=== PATIENT | male | born 1955 | race Caucasian/White ===

== ENCOUNTER 2016-11-18 17:43 | Observation (INO) | payer BC ==
--- NOTE | 2016-11-18 17:56 | CPEKG ---
Heart Rate: 69 RR Interval: 870 P-R Interval: 200 QRSD Interval: 94 QT Interval: 416 QTC Interval: 446 P Perry: 11 QRS Perry: 22 T Wave Perry: 38 EKG Severity - OTHERWISE NORMAL ECG - EKG Impression: SINUS RHYTHM EKG Impression: LOW VOLTAGE IN FRONTAL LEADS Electronically Signed By: Sachin Thacker 18-Nov-2016 21:18:04
[2016-11-18] MEDS ORDERED: ONDANSETRON 4 MG/2 ML VIAL IVP ONE ×2 (17:58→19:17)
[2016-11-18] MEDS ORDERED: NS 1,000 ML IV ONE ×2 (17:58)
[2016-11-18] MEDS ORDERED: HYDROmorphONE/DILAUDID 1 MG/ML SYR IVP ONE ×2 (17:58→20:12)
--- NOTE | 2016-11-18 18:01 | EDPHY ---
H & P Time Seen by Provider: 11/18/16 17:45 Constitutional: Initial Vital Signs Temperature (C) 36.9 C 11/18/16 17:56 Heart Rate 88 11/18/16 17:56 Respiratory Rate 14 11/18/16 17:56 Blood Pressure 140/92 H 11/18/16 17:56 O2 Sat (%) 98 11/18/16 17:56 O2 Delivery Mode Room Air O2 (L/minute) 2 Allergies/Adverse Reactions: ciprofloxacin [From Cipro] Allergy (Severe, Verified 11/18/16 17:55) Other-Enter Comments ciprofloxacin HCl [From Cipro] Allergy (Severe, Verified 11/18/16 17:55) Other-Enter Comments moxifloxacin HCl [From Avelox] Allergy (Severe, Verified 11/18/16 17:55) Hypotension erythromycin base [Erythromycin Base] Allergy (Intermediate, Verified 11/18/16 17:55) Other-Enter Comments Sulfa (Sulfonamide Antibiotics) Allergy (Mild, Verified 11/18/16 17:55) Other-Enter Comments Home Medications: Medication Instructions Recorded Aspirin [Aspirin 81mg] 81 mg PO DAILY 11/09/10 Medical Decision Making ED Course/Re-evaluation: CHIEF COMPLAINT: Abdominal pain, left lower back pain, nausea. HISTORY OF PRESENT ILLNESS: The patient is a 61-year-old male who presents with nausea, sharp abdominal pain, and left lower back pain. The back pain onset suddenly at 0300 this morning which was followed at 0500 by the abdominal pain and nausea. He believes the nausea may be from the intensity of the pain. He denies vomiting or other complaints. REVIEW OF SYSTEMS: A 10 point review of systems was performed and is negative with the exception of the elements mentioned in the history of present illness. PHYSICAL EXAM: HR, BP, O2 Sat, RR. Temp noted General Appearance: Alert, well hydrated, appropriate, and non-toxic appearing. Head: Atraumatic without scalp tenderness or obvious injury Eyes: Pupils equal, round, reactive to light and accommodation, EOMI, no trauma , no injection. Ears: Clear bilaterally, no perforation, normal landmarks Nose: Atraumatic, no rhinorrhea, clear. Throat: There is no erythema or exudates, no lesions, normal tonsils, mucus membranes moist. Neck: Supple, 2+ carotid upstroke, nontender, no lymphadenopathy. Respiratory: No retractions, no distress, no wheezes, and no accessory muscle use. Lungs are clear to auscultation bilaterally. Cardiovascular: Regular rate and rhythm, no murmurs, rubs, or gallops. Bilateral carotid, radial, dorsalis pedis, and posterior tibial pulses intact. Good capillary refill all extremities. Gastrointestinal: Epigastric tenderness. Abdomen is soft, non-distended, no masses, no rebound, no guarding, no peritoneal signs. Musculoskeletal: Normal active ROM of all extremities, atraumatic. Neurological: Alert, appropriate, and interactive. The patient has normal DTRs and non-focal cranial nerves, motor, sensory, and cerebellar exam. Skin: No rashes, good turgor, no nodules on palpation. Past medical history:Pacemaker. Past surgical history:Pacemaker placement. Family history:Non-contributory. Social history:Here with . DIAGNOSTICS/PROCEDURES/CRITICAL CARE TIME: Study: CT of the abdomen/pelvis. Indication: Pain. Results: Left kidney stone. I viewed the images myself on the PACS system. The 12 lead EKG was interpreted by myself. See hard copy and/or "tracemaster" electronic copy for interpretation. Sinus rhythm rate 69. DIFFERENTIAL DIAGNOSIS: The differential diagnosis for the patient's abdominal pain included but was not limited to appendicitis, cholecystitis, hernias, testicular torsion, gastritis, and urinary tract infection. MEDICAL DECISION MAKING: This is a 61-year-old male with a history of pacemaker who presents with left lower back pain, nausea, and abdominal pain since early this morning. He is quite tender on exam and has no prior history of diverticulitis. I have concern for this or kidney stone chiefly as he believes his nausea may be due to the pain. An IV was established and labs ordered. Abdomen/pelvis CT with contrast ordered. 2L IV saline administered for hydration, 4mg IV Zofran for nausea, 1mg IV Dilaudid for pain. Patient's WBC elevated at 12.09. Urine shows 50-182 RBCs. 1919: Patient's CT per radiology shows a left kidney stone with urine extravasation. I discussed these results with him and answered all of his questions. Plan for admission. 1934: Consulted with Dr. Vazquez, urology. He wants the patient PO and will do a cystoscopy tomorrow. .4mg PO Flomax administered. 1941: Consulted with Dr. Teddy, hospitalist. She accepts admission. - Data Points Laboratory Results: Laboratory Results 11/18/16 17:58 11/18/16 17:58 11/18/16 11/18/16 18:07 17:58 WBC 12.09 H 10^3/uL (3.80-9.50) RBC 5.37 10^6/uL (4.40-6.38) Hgb 15.6 g/dL (13.7-17.5) Hct 45.2 % (40.0-51.0) MCV 84.2 fL (81.5-99.8) MCH 29.1 pg (27.9-34.1) MCHC 34.5 g/dL (32.4-36.7) RDW 13.1 % (11.5-15.2) Plt Count 182 10^3/uL (150-400) MPV 11.4 fL (8.7-11.7) Neut % (Auto) 90.4 H % (39.3-74.2) Lymph % (Auto) 4.9 L % (15.0-45.0) [place] % (Auto) 4.1 L % (4.5-13.0) Eos % (Auto) 0.0 L % (0.6-7.6) Baso % (Auto) 0.2 L % (0.3-1.7) Nucleat RBC Rel Count 0.0 % (0.0-0.2) Absolute Neuts (auto) 10.94 H 10^3/uL (1.70-6.50) Absolute Lymphs (auto) 0.59 L 10^3/uL (1.00-3.00) Absolute Monos (auto) 0.49 10^3/uL (0.30-0.80) Absolute Eos (auto) 0.00 L 10^3/uL (0.03-0.40) Absolute Basos (auto) 0.02 10^3/uL (0.02-0.10) Absolute Nucleated RBC 0.00 10^3/uL (0-0.01) Immature Gran % 0.4 % (0.0-1.1) Immature Gran # 0.05 10^3/uL (0.00-0.10) Sodium 135 mEq/L (134-144) Potassium 4.5 mEq/L (3.5-5.2) Chloride 101 mEq/L (97-110) Carbon Dioxide 21 L mEq/l (22-31) Anion Gap 13 mEq/L (8-16) BUN 13 mg/dL (7-23) Creatinine 1.0 mg/dL (0.7-1.3) Estimated GFR > 60 Glucose 118 H mg/dL (70-100) Calcium 9.0 mg/dL (8.5-10.4) Total Bilirubin 1.1 mg/dL (0.1-1.4) Conjugated Bilirubin 0.2 mg/dL (0.0-0.5) Unconjugated Bilirubin 0.9 mg/dL (0.0-1.1) AST 26 IU/L (17-59) ALT 41 IU/L (21-72) Alkaline Phosphatase 87 IU/L (38-126) Total Protein 7.1 g/dL (6.3-8.2) Albumin 4.0 g/dL (3.5-5.0) Lipase 41.0 IU/L (23-300) Urine Color YELLOW Urine Appearance CLEAR Urine pH 5.0 (5.0-7.5) Ur Specific [place] 1.020 (1.002-1.030) Urine Protein NEGATIVE (NEGATIVE) Urine Ketones TRACE H (NEGATIVE) Urine Blood 2+ H (NEGATIVE) Urine Nitrate NEGATIVE (NEGATIVE) Urine Bilirubin NEGATIVE (NEGATIVE) Urine Urobilinogen NEGATIVE EU (0.2-1.0) Ur Leukocyte Esterase NEGATIVE (NEGATIVE) Urine RBC 50-182 H /hpf (0-3) Urine WBC 1-3 /hpf (0-3) Ur Epithelial Cells NONE SEEN /lpf (NONE-1+) Urine Mucus TRACE /lpf (NONE-1+) Ur Culture Indicated? NOT INDICATED (NI) Urine Glucose 2+ H (NEGATIVE) Medications Given: Discontinued Medications Hydromorphone HCl (Dilaudid) 1 mg IVP EDNOW ONE Stop: 11/18/16 17:59 Last Admin: 11/18/16 18:22 Dose: 1 mg Sodium Chloride (Ns) 1,000 mls @ 0 mls/hr IV ONCE ONE PRN Reason: Wide Open Stop: 11/18/16 17:59 Last Admin: 11/18/16 18:22 Dose: 1,000 mls Ondansetron HCl (Zofran) 4 mg IVP EDNOW ONE Stop: 11/18/16 17:59 Last Admin: 11/18/16 18:22 Dose: 4 mg Departure - Departure Disposition: [facility] Inpatient Acute Clinical Impression: Kidney stone, Urine extravasation Condition: Fair Referrals: Patient,NotPresent [Unknown] - As per Instructions Report Scribed for: Sachin Thacker Report Scribed by: Willi Zuluaga Date of Report: 11/18/16 Time of Report: 18:43
[2016-11-18 18:11] LABS: % IMMATURE GRANULYOCYTES 0.4 % (0.0-1.1); ABSOLUTE IMMATURE GRANULOCYTES 0.05 10^3/uL (0.00-0.10); ADD DIFF? NO; ADD MORPH? NO; ADD SCAN? NO; ATYPICAL LYMPHOCYTE FLAG 0 (0-99); FRAGMENT RBC FLAG 0 (0-99); HEMATOCRIT 45.2 % (40.0-51.0); HEMOGLOBIN 15.6 g/dL (13.7-17.5); LEFT SHIFT FLG 0 (0-99); LIPEMIA HEMOLYSIS FLAG 90 (0-99); MEAN CELL HEMOGLOBIN 29.1 pg (27.9-34.1); MEAN CELL HEMOGLOBIN CONCENTR. 34.5 g/dL (32.4-36.7); MEAN CELL VOLUME 84.2 fL (81.5-99.8); MEAN PLATELET VOLUME 11.4 fL (8.7-11.7); PLATELET CLUMPS FLAG 10 (0-99); PLATELET COUNT 182 10^3/uL (150-400); RED BLOOD CELL COUNT 5.37 10^6/uL (4.40-6.38); RED CELL DISTRIBUTION WIDTH 13.1 % (11.5-15.2)
[2016-11-18 18:17] LABS: COLOR YELLOW; LEUKOCYTE ESTERASE,URINE NEGATIVE (NEGATIVE); NITRITE,URINE NEGATIVE (NEGATIVE)
[2016-11-18] MEDS ORDERED: IOPAMIDOL (ISOVUE-300) 100 ML BTL IV ONE (18:17)
[2016-11-18 18:25] LABS: MUCUS TRACE /lpf (NONE-1+); RBC,URINE 50-182 /hpf (0-3)
[2016-11-18 18:34] LABS: ALANINE AMINOTRANSFERASE 41 IU/L (21-72); ALKALINE PHOSPHATASE 87 IU/L (38-126); ANION GAP 13 mEq/L (8-16); ASPARTATE AMINOTRANSFERASE 26 IU/L (17-59); BILIRUBIN,TOTAL 1.1 mg/dL (0.1-1.4); BILIRUBIN-CONJUGATED 0.2 mg/dL (0.0-0.5); BILIRUBIN-UNCONJUGATED 0.9 mg/dL (0.0-1.1); CARBON DIOXIDE 21 mEq/l (22-31); CHLORIDE 101 mEq/L (97-110); GLOMERULAR FILTRATION RATE > 60; GLUCOSE 118 mg/dL (70-100); POTASSIUM 4.5 mEq/L (3.5-5.2); SODIUM 135 mEq/L (134-144); TOTAL PROTEIN 7.1 g/dL (6.3-8.2)
[2016-11-18] MEDS ORDERED: TAMSULOSIN HCL 0.4 MG CAP PO ONE (19:36)
[2016-11-18] MEDS ORDERED: PROMETHAZINE HCL 25 MG/ML VIAL ONE (20:08)
[2016-11-18] MEDS ORDERED: PROMETHAZINE HCL 25 MG/ML VIAL IVP ONE (20:12)
[2016-11-18] MEDS ORDERED: ONDANSETRON DISINTEGRATING 4 MG TAB PO PRN (20:26)
[2016-11-18] MEDS ORDERED: ZOLPIDEM TARTRATE 5 MG TAB PO PRN (20:26)
[2016-11-18] MEDS ORDERED: HYDROmorphONE/DILAUDID 1 MG/ML SYR IVP PRN (20:26)
[2016-11-18] MEDS ORDERED: oxyCODONE IR 5 MG TAB PO PRN (20:26)
[2016-11-18] MEDS ORDERED: ONDANSETRON 4 MG/2 ML VIAL IVP PRN (20:26)
[2016-11-18] MEDS ORDERED: KETOROLAC 30 MG/1 ML SDV IVP ONE (20:28)
--- NOTE | 2016-11-18 20:31 | CT ---
CT Scan of the Abdomen and Pelvis (With Contrast) 1903 hours History: Left flank pain and vomiting. Technique: Axial computed tomographic images of the abdomen and pelvis were obtained with the unevent ful intravenous administration of 90 mL Isovue-300 contrast. Images were reviewed in multiple planes. The patient was brought back for 35 minute delayed imaging through the abdomen pelvis. Dose reductio n techniques were utilized. CT Abdomen and Pelvis Findings: Kidneys: There is moderate left-sided hydronephrosis with dilatation of the left ureter down to the m idpelvis were there is a 5 x 4 x 5 mm mid to distal left ureteral calculus at the level of the inferi or SI joint. There is fluid density in the retroperitoneal and perinephric fat on the left that on de layed imaging was shown to represent extravasation of contrast from the collecting system mid to uppe r pole left kidney. This extravasation extends down to the level of the midpelvis. No additional isauro l or ureteral calculi are identified. There are no significant renal masses. There are a few tiny les s than 5 mm presumed cysts associate with left kidney. Lung bases: Normal. Liver: Normal. Spleen: Normal. Gallbladder and Bile Ducts: Normal. Pancreas: Normal. Adrenals: Normal. Abdominal Aorta: No aneurysm. Pelvic structures: Normal Bladder: Normal. Appendix: Normal. Bowel Loops: Normal. No bowel obstruction, ascites, or significant retroperitoneal lymphadenopathy. Skeletal system: Vertebral body heights are well-maintained. There are no significant lytic or scler otic osseous lesions. There are some Schmorl's nodes involving the endplates at L2-L3. Impression: 1. Moderate left-sided hydronephrosis with dilatation of the left ureter down to the midpelvis with t here is a 5 x 4 x 5 mm left ureteral calculus at the inferior SI joint level. 2. Retroperitoneal and perinephric extravasation of contrast from the mid to upper renal collecting s ystem. 3. Tiny incidental less than 5 mm presumed cysts associated with the left kidney. 4. Schmorl's nodes involving the endplates at L2-L3. These findings were discussed by telephone with Dr. Sachin Thacker at 2014 hrs.
--- NOTE | 2016-11-18 21:20 | GHP ---
[f rep st] HISTORY AND PHYSICAL DATE OF ADMISSION: 11/18/2016 CHIEF COMPLAINT: Flank pain. HISTORY OF PRESENT ILLNESS: The patient is a 61-year-old healthy man who comes in with acute onset o f left lower back pain. He said he was in his usual state of good health until last night when he wo ke up at 3 a.m. with severe left lower back pain, nausea, vomiting, and chills. The pain has persist ed through the day until he came in to the emergency room. He has not had fevers or chills. He has not had any diarrhea. He has not had any other symptoms really except for the back pain and nausea, vomiting. In the emergency department, they noted some hematuria, did a CT scan, which revealed a le ft kidney stone with urine extravasation. REVIEW OF SYSTEMS: A 10-point review of systems was done and is negative except as stated in the HPI . PAST MEDICAL HISTORY: 1. Sick sinus syndrome, status post pacemaker placement. 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 2. Obstructive sleep apnea, on CPAP. 3. Hypothyroidism, on replacement. PAST SURGICAL HISTORY: Left total knee replacement and elbow surgery. FAMILY HISTORY: Father had rectal cancer. Mother with diabetes. SOCIAL HISTORY: He is . 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 He does not smoke and rarely drinks alcohol. CURRENT MEDICATIONS: Include aspirin daily and Synthroid 75 mcg daily. ALLERGIES: Sulfa and Avelox which cause dizziness and Cipro which causes a rash. PHYSICAL EXAMINATION: VITAL SIGNS: He is afebrile. Heart rate 88, blood pressure 140/92, respirati ons 14. He is 98% on room air. GENERAL: He is a very healthy-appearing 61-year-old. He is in mild distress. He is alert and oriented. Speech is clear and fluent. HEENT: Pupils equal, round, and reactive. Extraocular movements intact. Mucous membranes moist. Oropharynx clear. NECK: Supple. No adenopathy. No carotid bruits. HEART: Regular rate and rhythm. No murmurs, gallops, or rubs. LUNGS: Clear to auscultation. ABDOMEN: Soft. He does have some tenderness in the left flank area . Positive bowel sounds. EXTREMITIES: No clubbing, cyanosis, or edema. MUSCULOSKELETAL: No joint effusions or deformities. SKIN: Intact. No rash. NEUROLOGIC: Intact. LABORATORY DATA: CBC shows a white count of 12.09, H and H and platelet count are normal. Electroly anmol are all normal with normal renal function. LFTs are normal. Lipase is negative. Urinalysis ruben ws 50-182 RBCs. No WBCs. Abdominal CT without contrast shows moderate left-sided hydronephrosis wit h dilation of the left ureter down to the mid pelvis where there is a 5 mm stone, retroperitoneal and perinephric extravasation of contrast from the mid to upper renal collecting system is noted. ASSESSMENT AND PLAN: 1. A 61-year-old healthy man presents with acute onset left flank pain, hematuria and a 5 mm stone. Patient was discussed in detail with Dr. Donta Vazquez by the ER (emergency room) physician, Dr. Gena Thacker, who I spoke with. Plan will be to admit him to the hospital for pain control, hydration . Dr. Vazquez or 1 of his partners will see him in the morning for possible cystoscopy with stone e xtraction should he not pass it overnight. In the meantime, I will be generous with IV fluids, pain control with IV Toradol, Dilaudid and oxycodone. I will also add Flomax. 2. Hypothyroidism. Continue his Synthroid. 3. Obstructive sleep apnea. Will try to obtain some CPAP for him while he is here. 4. Sick sinus syndrome, status post pacemaker placement. Will alert the operating room that he does have a pacemaker in place. /[id number]/MODL
[2016-11-18] MEDS: NS 1,000 ML IV SCH (22:18)
[2016-11-18] MEDS: TAMSULOSIN HCL 0.4 MG CAP PO SCH (22:25)
[2016-11-19] MEDS: KETOROLAC 15 MG/1 ML SDV IVP SCH ×3 (00:03→14:49)
[2016-11-19] MEDS: NS 1,000 ML IV SCH ×2 (03:20→09:23)
[2016-11-19 05:27] LABS: ANION GAP 9 mEq/L (8-16); CALCIUM 8.7 mg/dL (8.5-10.4); CARBON DIOXIDE 25 mEq/l (22-31); CHLORIDE 106 mEq/L (97-110); CREATININE 1.2 mg/dL (0.7-1.3); GLOMERULAR FILTRATION RATE > 60; GLUCOSE 85 mg/dL (70-100); POTASSIUM 4.6 mEq/L (3.5-5.2); SODIUM 140 mEq/L (134-144)
[2016-11-19] MEDS ORDERED: LEVOTHYROXINE 75 MCG TAB PO SCH (06:00)
[2016-11-19] MEDS: TAMSULOSIN HCL 0.4 MG CAP PO SCH (09:23)
[2016-11-19] MEDS ORDERED: LIDOCAINE 2% JELLY 20 ML (UROJECT) ONE (10:06)
[2016-11-19] MEDS ORDERED: IOPAMIDOL (ISOVUE-M 300) 15 ML VIAL IV ONE (10:06)
[2016-11-19] MEDS ORDERED: DEXAMETHASONE 4 MG/ML VIAL ONE (12:10)
[2016-11-19] MEDS ORDERED: ONDANSETRON 4 MG/2 ML VIAL ONE (12:10)
[2016-11-19] MEDS ORDERED: LIDOCAINE 2% 100 MG/5 ML SYR IVP ONE (12:10)
[2016-11-19] MEDS ORDERED: PROPOFOL 200 MG/20 ML VIAL ONE (12:11)
[2016-11-19] MEDS ORDERED: fentaNYL 100 MCG/2 ML INJ ONE (12:11)
[2016-11-19] MEDS ORDERED: CEFAZOLIN 2 GM/DEXTROSE/100 ML BAG IV ONE (12:42)
[2016-11-19] MEDS ORDERED: MIDAZOLAM 2 MG/2 ML VIAL ONE (12:55)
[2016-11-19] MEDS ORDERED: ceFAZolin 2 GM/DEXTROSE 100 ML IV ONE (13:00)
--- NOTE | 2016-11-19 13:11 | POSTOPPROG ---
Post Op Note Date of Operation: 11/20/16 Surgeon: Armaan Bass (# [id number]) Land Clearer: Consult # [id number] Pre-op Diagnosis: Distal left ureteral calculus Post-op Diagnosis: Distal left ureteral calculus Procedure: Ureteroscopy, laser litho, basket extraction, stent placement Findings: See op note Inf/Abcess present in the surg proc area at time of surgery?: No EBL: Minimal (< 10 cc) Complications: None Drains: Other (4.7 Fr. x 26 cm left ureteral stent) Specimen(s): Ureteral calculus fragments Text Box - Additional Text Additional Text: To RR in stable condition. He may discharged either tonight or in AM, as deemed appropriate by hospitalist service, with [place] prn and Pyridium 200 mg TID x 5 days. He needs to FU in my office in ~ 2 weeks for ureteral stent removal.
[2016-11-19] MEDS ORDERED: PHENYLEPHRINE HCL 100 MCG/ML SYR ONE (13:25)
--- NOTE | 2016-11-19 14:02 | GCON ---
[f rep st] CONSULTATION UROLOGY CONSULTATION. DATE OF CONSULTATION: 11/19/2016 REFERRING PHYSICIAN: hospitalist service REASON FOR CONSULTATION: Left ureteral stone. HISTORY: This is a 61-year-old gentleman who was in his otherwise state of good health when he was awakened about 3 a.m. on Friday morning with significant left-sided flank pain that radiated into the mid abdomen. This waxed and waned throughout the day until it worsened to the point that he presented to the emergency room yesterday evening. There was some associated emesis as well. He denies any fevers, flu-like symptoms, dysuria, gross hematuria, nor changes in his typical voiding pattern. Imaging through the CT revealed a left ureteral calculus noted below. The patient has improved since hospital admission last night but continues to have intermittent pain. He denies any prior history of nephrolithiasis. PAST MEDICAL HISTORY: Sick sinus syndrome, obstructive sleep apnea, hypothyroidism. PAST SURGICAL HISTORY: Left total knee replacement in August 2015; pacemaker in 2009. FAMILY HISTORY: His father had rectal cancer. No kidney stones to his knowledge. SOCIAL HISTORY: The patient is and lives in the [address] [place] [address]. He denies the use of tobacco products and consumes alcohol rarely. 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 ADMISSION MEDICATIONS: 1. Daily aspirin. 2. Synthroid 75 mcg daily. ALLERGIES: 1. Sulfa and Avelox cause dizziness. 2. Cipro causes a rash. REVIEW OF SYSTEMS: Unremarkable other than mentioned above in the HPI and past medical history. PHYSICAL EXAM: GENERAL: A well-developed, well-nourished white male, lying upright in bed, in no acute distress presently. VITAL SIGNS: Blood pressure 102/63, pulse 72, respiratory rate 18, oxygen saturation 94% on room air, temperature 36.6 C. HEENT: Normocephalic, atraumatic. NECK: Supple. HEART: Regular rhythm and rate. CHEST: Unlabored respiratory pattern. ABDOMEN: Soft , with mild left flank tenderness to deep percussion. GENITALIA: Normal phallus and scrotal structures. EXTREMITIES: Warm, without cyanosis, clubbing , nor significant edema. NEUROLOGIC: He is alert and oriented. He answers all questions appropriately with normal mood and affect. RADIOGRAPHIC STUDIES: Abdominopelvic CT scan yesterday evening: Upon my review , notable for mild left hydroureteronephrosis with some perirenal extravasation and an approximately 5 x 6 x 7 mm long distal left ureteral calculus, just distal to the pelvic inlet. No other renal calculi are seen nor other abnormal renal masses. LABORATORY: CBC is notable for a white blood cell count of 12,000. Normal chemistry panel: Creatinine 1.2, calcium 8.7. Urinalysis notable for microhematuria but otherwise normal. IMPRESSION: Sizeable symptomatic distal left ureteral calculus. Management options would include observation with medical management versus surgery. Based on the size of the stone, it is unlikely to pass spontaneously. A ureteroscopy and aspects regarding the surgery were reviewed in detail today. All of the patient's questions were answered and he wished to proceed as scheduled. PLAN: 1. Proceed with intraoperative left ureteroscopy and holmium laser calculus lithotripsy with ureteral stent placement this afternoon. 2. Depending on his clinical course, he will hopefully be ready for discharge either later today or tomorrow morning. Thank you for this consultation. /[id number]/MODL MTDD
[2016-11-19] MEDS ORDERED: KETOROLAC 30 MG/1 ML SDV ONE (14:03)
[2016-11-19 14:38] VITALS: RESP 18
--- NOTE | 2016-11-19 16:14 | DX ---
Fluoroscopy provided for left ureteral stent placement Indication: Left ureteral calculus. Technique: 0.8 minutes of fluoroscopy time. Cumulative dose: 6.8 mGy. Findings: A single spot film reveals a well positioned internalized double-J left ureteral stent. The left pelvocaliceal system is borderline dilated and partially obscured by extravasated contrast. Impression: Fluoroscopy provided for deployment of left ureteral stent.
[2016-11-19 16:20] VITALS: BP 116/72; PULSE 92; TEMP 98.2; O2SAT 94
--- NOTE | 2016-11-19 16:31 | GDS ---
[f rep st] DISCHARGE SUMMARY DISCHARGE DIAGNOSES: 1. Renal colic. 2. Hypothyroidism. 3. Obstructive sleep apnea. 4. History of sick sinus syndrome. CONSULTATIONS: Dr. Bass, Urology. HOSPITAL COURSE BY STAY AND PROBLEM: Distal left ureteral calculus: The patient was admitted to the hospital, where he underwent ureteroscopy with laser lithotripsy and basket extraction with stent pl acement on 11/19/2016. Postoperatively, the patient has done well. He was offered further observati on, but states that his pain is controlled and would like to leave the hospital. PHYSICAL EXAM: VITAL SIGNS: On day of discharge blood pressure 131/83, pulse 75, respiratory rate 1 8, O2 sat 95% on room air, temperature afebrile. GENERAL: No acute distress. PROCEDURES DONE THIS HOSPITAL STAY: Ureteroscopy with laser lithotripsy, basket extraction, and sten t placement done by Dr. Bass on 11/19/2016. DISCHARGE MEDICATIONS: Please refer to discharge medication reconciliation in [facility] for details. DISCHARGE INSTRUCTIONS: The patient will be discharged from the hospital, where he was urged to foll ow up with Dr. Bass for stent removal in the next few weeks. He should seek medical attention if h e develops any fever, chills, or inability to void. /[id number]/MODL
[2016-11-19] MEDS: PHENAZOPYRIDINE HCL 200 MG TAB PO SCH ×2 (17:12→17:49)
--- NOTE | 2016-11-20 01:14 | GOP ---
[f rep st] OPERATIVE REPORT DATE OF OPERATION: 11/19/2016 SURGEON: Armaan Bass MD ANESTHESIA: Laryngeal mask. PREOPERATIVE DIAGNOSIS: Symptomatic distal left ureteral calculus. POSTOPERATIVE DIAGNOSIS: Symptomatic distal left ureteral calculus. PROCEDURE PERFORMED: 1. Cystourethroscopy, left retrograde pyelography. 2. Left ureteroscopy with holmium laser calculus lithotripsy and basket extraction. 3. Left ureteral stent placement (4.7-Montenegrin x 26 cm). FINDINGS: Left ureteral calculus at the level of the pelvic inlet, addressed as noted in the body of the dictation. SPECIMENS: Calculus fragments. INDICATIONS: This gentleman was admitted yesterday evening with a sizeable symptomatic distal left u reteral calculus. He has opted for operative management. The indications for the procedures as well as potential risks and complications were discussed with the patient preoperatively. He appeared to understand, his questions were answered, and he wished to proceed. Written informed surgical consen t was thereafter obtained. DESCRIPTION OF PROCEDURE: The patient was brought to the operating room and administered laryngeal m ask anesthesia. He was carefully placed in the dorsal lithotomy position on the cystoscopic table. The genital area was sterilely prepped with Betadine scrub and paint and then draped in the usual lucas rile fashion. Cystoscopy was performed with the 30 degree and 70 degree lenses through a 22-Montenegrin s alina. The anterior urethra revealed no abnormalities. Posterior urethra revealed mild BPH. Examin ation of bladder revealed no abnormalities. Ureteral orifices were normal in regard to shape and pos ition along the trigone. A cone tip catheter was used to perform retrograde pyelography on the left side. This revealed a pos sible filling defect near the pelvic inlet and mild proximal hydronephrosis and hydroureter. No othe r abnormalities were appreciated. I then passed a 0.035 inch sensor guidewire up the left ureter unt il it was seen within the renal collecting system fluoroscopically. The distal ureter was dilated wi th a 4 cm balloon by maintaining a pressure of 16 atmospheres for about 4 minutes. The balloon dilat or and cystoscope were then removed while keeping the guidewire in place. Semi-rigid ureteroscopy wa s performed alongside the guidewire. I advanced the ureteroscope into the distal ureter. No calculu s was seen. Near the level of the pelvic inlet, however, there did appear to be some narrowing of th e ureter at this location, and I was unable to easily advance the ureteroscope further proximally. M y thought was that the calculus was probably sitting just proximal to this narrowing and that I neede d to dilate this portion of the ureter in order to allow for ureteroscopic access. Therefore, the ur eteroscope was removed and the cystoscope was back loaded over the guidewire. The 4 cm balloon was t hen reinserted and, based on fluoroscopic guidance, was straddled across the portion of the ureter ov erlying the pelvic inlet. This portion of the ureter was dilated by maintaining a pressure of 16 [place] ospheres for about 4 minutes. The balloon dilator and cystoscope were then again removed while keepi ng the guidewire in place. Semi-rigid ureteroscopy was again performed. The ureteroscope was advanc ed to the portion of the ureter just proximal to the pelvic inlet where a sizable calculus was seen. A 365 micron holmium laser fiber was used to fragment this calculus into approximately 3 pieces. A zero tip Nitinol stone basket was then used to extract each of these fragments without complication. They were sent to pathology for chemical analysis. The ureteroscope was advanced all the way into t he proximal ureter, just distal to the ureteropelvic junction, and no other abnormalities were seen. Contrast was injected to opacify the remainder of the renal collecting system for stent placement pu rposes. The ureteroscope was removed, and the cystoscope was back loaded over the guidewire. A 4.7- Montenegrin x 26 cm hydrophilic ureteral stent was advanced over the guidewire until it was properly posit ioned as seen fluoroscopically in the kidney and cystoscopically in the bladder. The bladder was the n drained of all return, which was relatively clear. The instruments were removed, and 20 cc of 2% l idocaine injected transurethrally for postoperative analgesic purposes. At the conclusion of the tyrone e, the patient was also given Toradol 15 mg IV by Anesthesia. COMPLICATIONS: None. DISPOSITION: He was transferred to the recovery room in stable condition and can be discharged once deemed appropriate by the hospitalist service with instructions to return to my office in approximate ly 2 weeks for stent removal. /[id number]/MODL
== END 2016-11-19 18:20 | disposition home health service (06) ==
LOC: EDUNIT# → F1N 21:21
PROVIDERS: ADMIT Internal Medicine; ATTEND Internal Medicine
PROC: 0TF78ZZ Fragmentation in Left Ureter, Via Natural or Artificial Opening Endoscopic (ICD-10-PCS; principal; 2016-11-18)
PROC: 0TC78ZZ Extirpation of Matter from Left Ureter, Via Natural or Artificial Opening Endoscopic (ICD-10-PCS; 2016-11-18)
PROC: 0T778DZ Dilation of Left Ureter with Intraluminal Device, Via Natural or Artificial Opening Endoscopic (ICD-10-PCS; 2016-11-18)
DX: N20.1 Calculus of ureter (principal); N23 Unspecified renal colic; R39.0 Extravasation of urine; E03.9 Hypothyroidism, unspecified; G47.33 Obstructive sleep apnea (adult) (pediatric); I49.5 Sick sinus syndrome; Z95.0 Presence of cardiac pacemaker; Z96.652 Presence of left artificial knee joint
CPT/HCPCS: 52352; 52356; 74177; 76001; 93005; C1726; C1758; C1769; G0378; 82365-90; C2625; J0690; J1100; J1170; J1885; J2001; J2250; J2370; J2405; J2550; J2704; J3010; Q9967